=== PATIENT | female | born 1950 | race Caucasian/White ===

== ENCOUNTER → 2024-04-21 | Outpatient (CLI) | payer MEDICARE, BC, SELFPAY ==
[2024-04-21 11:40] LABS: Alanine Aminotransferase 18 U/L (10-49); Albumin, Serum 4.5 gm/dL (3.4-4.8); Albumin/Globulin Ratio 2.1 (1.2-2.2); Alkaline Phosphatase 42 U/L (46-116); Anion Gap 7 (7-16); Aspartate Amino Transferase 31 U/L (0-34); BUN/Creatinine Ratio 23 Ratio (12-20); Bilirubin,Total 0.5 mg/dL (0.3-1.2); Blood Urea Nitrogen 25 mg/dL (9-23); Calcium 9.9 mg/dL (8.3-10.6); Calcium (Corrected) 9.9 mg/dL (8.5-10.1); Cardiac Risk Estimate 2.8 RATIO (3.7-5.6); Chloride 107 mMol/L (98-107); Cholesterol 204 mg/dL (132-200); Creatinine (Component) 1.1 mg/dL (0.6-1.3); Globulin 2.1 gm/dL (2.3-3.5); Glucose 94 mg/dL (74-106); HDL Cholesterol 72 mg/dL (40-60); LDL Cholesterol,Calculated 120 mg/dL (0-130); Osmolality,Calculated 285 (275-295); Potassium 5.1 mMol/L (3.4-5.1); Sodium 141 mMol/L (136-145); Total Protein 6.6 gm/dL (5.7-8.2); Triglycerides 62 mg/dL (30-150); eGFR 53 See Note
== END | disposition home or self-care (01) ==
LOC: COPL 10:37
PROVIDERS: PCP Internal Medicine; Referring Provider Internal Medicine; Visit Provider Internal Medicine
DX: E78.5 Hyperlipidemia, unspecified (principal); I10 Essential (primary) hypertension
CPT/HCPCS: 36415; 80053; 80061

== ENCOUNTER → 2024-08-26 | Outpatient (CLI) | payer MEDICARE, BC, SELFPAY ==
[2024-08-26 11:59] LABS: Albumin, Serum 4.1 gm/dL (3.4-4.8); Anion Gap 5 (7-16); BUN/Creatinine Ratio 21 Ratio (12-20); Blood Urea Nitrogen 19 mg/dL (9-23); Calcium 9.3 mg/dL (8.3-10.6); Calcium (Corrected) 9.3 mg/dL (8.5-10.1); Chloride 108 mMol/L (98-107); Creatinine (Component) 0.9 mg/dL (0.6-1.3); Glucose 90 mg/dL (74-106); Osmolality,Calculated 283 (275-295); Phosphorous 3.7 mg/dL (2.4-5.1); Potassium 4.9 mMol/L (3.4-5.1); Sodium 141 mMol/L (136-145); eGFR > 60 See Note
== END | disposition home or self-care (01) ==
LOC: COPL 10:30
PROVIDERS: PCP Internal Medicine; Referring Provider Internal Medicine; Visit Provider Internal Medicine
DX: I10 Essential (primary) hypertension (principal); N17.9 Acute kidney failure, unspecified
CPT/HCPCS: 36415; 80069

== ENCOUNTER → 2024-09-04 | Outpatient (CLI) | payer MEDICARE, BC, SELFPAY ==
--- NOTE | 2024-09-04 14:30 | XR_ITS ---
Examination: Retroperitoneal ultrasound, complete Technique: Multiple high resolution grayscale images of the retroperitoneum obtained, including kidneys and bladder. Exam date and time:September 04, 2024 at 1435 hours INDICATIONS: Diagnosis acute renal insufficiency on laboratory examination today FINDINGS: Right kidney 10.2 cm in the cortex 1.8 cm Left kidney 10.9 cm cortex 2.0 cm Moderate bilateral renal parenchymal scar formation Lower pole left renal cyst 14 mm No bladder mass or bladder calculi, bladder prevoid volume 150 cc IMPRESSION: Moderate bilateral renal parenchymal scar formation No hydronephrosis
== END | disposition home or self-care (01) ==
LOC: CDIM 14:02
PROVIDERS: PCP Internal Medicine; Referring Provider Internal Medicine; Visit Provider Internal Medicine
DX: N28.89 Other specified disorders of kidney and ureter (principal)
CPT/HCPCS: 76770

== ENCOUNTER 2025-02-03 10:23 | Emergency (ER) | payer MEDICARE, BC, SELFPAY ==
[2025-02-03 10:34] VITALS: BP 147/77; PULSE 60; RESP 19; TEMP 36.9; O2SAT 97
--- NOTE | 2025-02-03 11:02 | XR_ITS ---
Examination: Abdomen AP single view Technique: AP portable supine abdomen, single view Exam date and time: February 03, 2025 1112 hours INDICATIONS: Mid abdominal pain beginning last night. FINDINGS: Large amounts of stool throughout the colon. No obstruction. No free air. Surgical clips upper right abdomen IMPRESSION: Large amounts of stool throughout the colon, no obstruction
--- NOTE | 2025-02-03 11:03 | EDRME_ITS ---
Rapid Medical Screening Exam [facility] Arrival date/time: 02/03/25 10:23 74-year-old female with a history of small bowel obstructions presents to the emergency room with a chief complaint of abdominal pain, dysuria, constipation x 3 days. Patient states she had a very small bowel movement on 02/01/2025 but states she is having a lot of pressure around the rectal area. I have greeted and performed a focused initial assessment of this patient. A comprehensive ED assessment and evaluation of the patient, analysis of all test results, and completion of the medical decision making process will be conducted by additional ED providers. Chief Complaint: Urogenital-Female Vital signs: Vital Signs Temperature 98.5 F 02/03/25 10:34 Pulse Rate 60 02/03/25 10:34 Respiratory Rate 19 02/03/25 10:34 Blood Pressure 147/77 H 02/03/25 10:34 Pulse Oximetry (%) 97 02/03/25 10:34 Oxygen Delivery Method Room Air 02/03/25 10:34 Vital signs reviewed by provider: Yes
[2025-02-03 11:27] LABS: Basophils # (Auto) 0.0 Thou/mm3 (0.0-0.2); Basophils % (Auto) 0 % (0-2.5); Eosinophils # (Auto) 0.0 Thou/mm3 (0.0-0.5); Eosinophils % (Auto) 0 % (0-10); Hematocrit 40.0 % (36.0-46.0); Hemoglobin 13.0 g/dL (12.0-16.0); Immature Granulocytes Auto 0.03 Thou/mm3 (0.00-0.00); Lymphocytes # (Auto) 1.1 Thou/mm3 (1.0-4.8); Lymphocytes % (Auto) 11 % (10-50); Mean Corpuscular HGB Conc 32.5 g/dl (31.0-37.0); Mean Corpuscular Hemoglobin 29.3 pg (25.0-35.0); Mean Corpuscular Volume 90 fL (80-100); Monocytes # (Auto) 0.4 Thou/mm3 (0.0-0.8); Monocytes % (Auto) 5 % (0-12); Neutrophils # (Auto) 8.0 Thou/mm3 (1.8-7.7); Neutrophils % (Auto) 84 % (37-80); Nucleated Red Blood Cell # 0.00 Thou/mm3 (0.00-0.00); Nucleated Red Blood Cell % 0 /100 WBC (0); Platelet Count 227 Thou/mm3 (140-440); RDW Standard Deviation 48.0 fL (36.4-46.3); Red Blood Count 4.44 Miln/mm3 (4.00-5.20); White Blood Count 9.6 Thou/mm3 (3.6-11.0)
[2025-02-03 11:44] LABS: Alanine Aminotransferase 17 U/L (10-49); Albumin, Serum 4.8 gm/dL (3.4-4.8); Albumin/Globulin Ratio 2.1 (1.2-2.2); Alkaline Phosphatase 69 U/L (46-116); Anion Gap 8 (7-16); Aspartate Amino Transferase 29 U/L (0-34); BUN/Creatinine Ratio 14 Ratio (12-20); Bilirubin,Total 0.4 mg/dL (0.3-1.2); Blood Urea Nitrogen 13 mg/dL (9-23); Calcium 10.5 mg/dL (8.3-10.6); Calcium (Corrected) 10.5 mg/dL (8.5-10.1); Carbon Dioxide 27.5 mMol/L (20.0-31.0); Chloride 108 mMol/L (98-107); Creatinine (Component) 0.9 mg/dL (0.6-1.3); Globulin 2.3 gm/dL (2.3-3.5); Glucose 121 mg/dL (74-106); Osmolality,Calculated 286 (275-295); Potassium 4.3 mMol/L (3.4-5.1); Sodium 143 mMol/L (136-145); Total Protein 7.1 gm/dL (5.7-8.2); eGFR > 60 See Note
[2025-02-03 11:48] VITALS: BMI 26.4
[2025-02-03] MEDS: MINERAL OIL 30 ML UDC TOP (12:49)
--- NOTE | 2025-02-03 12:51 | PC.NURSE ---
md kevin did manual dis impaction with mineral oil , large amount of stool removed
[2025-02-03 14:37] VITALS: BP 136/59; PULSE 60; RESP 17; TEMP 36.5; O2SAT 99
[2025-02-03 14:51] LABS: Collection Type, Urine Clean Catch; Squamous Epithelial Cell,Urine 0 /hpf (0-5)
[2025-02-03 14:55] LABS: Bilirubin,Urine Negative (Negative); Blood,Urine Negative (Negative); Clarity,Urine Clear (Clear/Hazy); Color,Urine Lt-Yellow (Lt Yel-Yel); Culture Indicated,Urine Not Indicated; Glucose, Urine Negative (Negative); Ketones,Urine Negative (Negative); Leukocyte Esterase,Urine Negative (Negative); Nitrite,Urine Negative (Negative); PH,Urine 7.0 (5.0-7.0); Protein,Urine Negative (Neg - Trace); RBC,Urine 6 /hpf (0-3); Specific Gravity,Urine 1.005 (1.001-1.035); Urobilinogen,Urine Negative mg/dL (0.0-1.0); WBC,Urine 2 /hpf (0-5)
[2025-02-03 15:56] VITALS: BP 144/68; PULSE 60; RESP 17; TEMP 36.7; O2SAT 97
--- NOTE | 2025-02-03 16:01 | EDNOTE_ITS ---
ED Female Urogenital RME/HPI General Chief complaint: Urogenital-Female Stated complaint: thinks she has a UTI and Impacted Time Seen by Provider: 02/03/25 11:24 Arrival date/time: 02/03/25 10:23 RME / HPI RME / HPI Narrative: 02/03/25 10:23 74-year-old female with a history of small bowel obstructions presents to the emergency room with a chief complaint of abdominal pain, dysuria, constipation x 3 days. Patient states she had a very small bowel movement on 02/01/2025 but states she is having a lot of pressure around the rectal area. I have greeted and performed a focused initial assessment of this patient. A comprehensive ED assessment and evaluation of the patient, analysis of all test results, and completion of the medical decision making process will be conducted by additional ED providers. DR. GARCIA MAIN ED EVALUATION 74 year old female with history of sick sinus syndrome s/p pacemaker, hypertension, diabetes, and previous small bowel obstruction presents to the ED for evaluation of abdominal pain, dysuria, and constipation beginning 3 days ago. Pain is described as aching in sensation that is located most across lower abdomen. Additionally reports she has had very small bowel movements since onset of pain that is accompanied by rectal pressure. Denies fevers, chills, chest pain, cough, shortness of breath, vomiting, or hematuria. Related Data Home Medications ?Medication ?Instructions ?Recorded ?Confirmed amlodipine 10 mg tablet (Norvasc) 10 mg PO QDAY #0 tab s 09/11/14 04/10/22 gabapentin 300 mg capsule See Rx Instructions .Route 0 08/05/15 04/10/22 .COMPLEX #0 caps baclofen 10 mg tablet 10 mg PO BID 10/20/19 denosumab 60 mg/mL subcutaneous See Rx Instructions .R oute .COMPLEX 04/10/22 04/10/22 syringe (Prolia) valsartan 160 mg tablet 160 mg PO QDAY 04/10/2203/22 Allergies Allergy/AdvReac Type Severity Reaction Status Date / Time lidocaine Allergy Severe DIFF Verified 02/03/25 10:30 BREATHING propoxyphene Allergy Severe DIFF Verified 02/03/25 10:30 BREATHING, DIZZINESS amoxicillin Allergy Mild FLU LIKE Verified 02/03/25 10:30 melatonin Allergy Mild BURNING Verified 02/03/25 10:30 MUSCLE PAIN mepivacaine Allergy Mild RESP ARREST Verified 02/03/25 10:30 metformin Allergy Mild GI UPSET, Verified 02/03/25 10:30 FATIGUE niacin Allergy Mild FLU Verified 02/03/25 10:30 pantoprazole Allergy Mild GI UPSET Verified 02/03/25 10:30 piroxicam Allergy Mild Rash Verified 02/03/25 10:30 hydrocodone Allergy Unknown Verified 02/03/25 10:30 promethazine Allergy Unknown GI UPSET Verified 02/03/25 10:30 Hwiowmn-WLW-StO Reductase Allergy Unknown MUSCLE PAIN Verified 02/03/25 10:30 Inhibitor (Cfxwkmi-Pie-Mpi Reductase Inhibitor) benazepril Allergy Cough Verified 02/03/25 10:30 celecoxib (From Celebrex) Allergy Blister Verified 02/03/25 10:30 ciclopirox Allergy Redness of Verified 02/03/25 10:30 Skin codeine Allergy Nausea Verified 02/03/25 10:30 epinephrine Allergy Difficulty Verified 02/03/25 10:30 Breathing ezetimibe Allergy Cramping Verified 02/03/25 10:30 of the Muscles iron Allergy Swelling Verified 02/03/25 10:30 of Lip/Tongue/Throat lubiprostone (From Amitiza) Allergy Dizziness Verified 02/03/25 10:30 penicillin V AdvReac Severe FEVER, Verified 02/03/25 10:30 JOINTS ACHE, KNOTS UNDER EYES erythromycin base AdvReac Unknown Nausea Verified 02/03/25 10:30 DIORDAN Allergy Mild Hives Uncoded 02/03/25 10:30 GAS ANESTHESIA Allergy Nausea Uncoded 02/03/25 10:30 NUCLEAR SCAN Allergy Difficulty Uncoded 02/03/25 10:30 Breathing Review of Systems Review of Systems Systems Reviewed: All systems reviewed, normal except as documented Past Medical History Past Medical History NEUROLOGIC: Positive Head Trauma CARDIAC: Positive Cardiac Disorders, Cardiac Arrhythmia, Heart Murmur and Hypertension RESPIRATORY: Positive Bronchitis and Pneumonia GASTROINTESTINAL: Positive Gastrointestinal Disorders, Pancreatitis, Gall Bladder Disease (LAP), Obstructive Bowel and Gastroesophageal Reflux Disease (TAKES MED) GENITOURINARY: Positive Genitourinary Disorders and Renal Disease MUSCULOSKELETAL: Positive Musculoskeletal Disorders, Arthritis, Osteoporosis and Carpal Tunnel Syndrome ENT: Positive Cataracts and Head Trauma ENDOCRINE: Positive Endocrine Disorders and Diabetes Mellitus Type 2 OTHER HISTORY: Positive Hospitalization, Anesthesia Reactions, Chicken Pox, Measles and Mumps Family History FAMILY HISTORY: Positive Family Cardiac Disorders, Family Cancer and Family Anesthesia Reaction Surgical History SURGICAL: Positive Pacemaker, Tonsillectomy, Abdominal Surgery and Hysterectomy Social History SMOKING STATUS: Never smoker SUBSTANCE USE: does not use ED Exam Narrative Physical exam: GENERAL APPEARANCE: alert and oriented x 4, well-developed, well-nourished, no acute distress HEENT: Normocephalic, atraumatic; pupils equal, round, reactive to light; EOMI; mucous membranes pink, moist; oropharynx clear NECK: Supple LUNGS: CTABL; no wheezes, no rales, no rhonchi HEART: Regular rate, regular rhythm; normal S1, S2; no murmurs ABDOMEN: abdominal fullness with diffuse tenderness to palpation; non distended; normal BS; no guarding, no rebound; no masses, no organomegaly, no hernia BACK: no CVA tenderness EXTREMITIES: atraumatic; no edema NEUROLOGIC: awake; alert and oriented x4; cranial nerves II-XII grossly intact; no focal sensory or motor deficits PSYCHIATRIC: appropriate mood and affect SKIN: warm, dry, normal color; no rashes Course Course Course Narrative: Manual disimpaction performed. I obtained verbal consent from the patient. Patient positioned in left lateral decubitus position. Digital rectal examination performed, revealing soft stool in the rectal vault. Using gloved, lubricated finger, stool was manually removed in multiple pieces. Stool soft and reddish brown. Mineral oil was used adjunctively. Patient tolerated procedure well though with mild discomfort. Patient was given a soap suds enema following disimpaction and passed large amount of stool. Quality Measures none Orders Category Date Time Status Enema Administration NOW Care 02/03/25 12:35 Completed Insert IV NOW Care 02/03/25 11:48 Completed XR abdomen 1V Stat Exams 02/03/25 11:02 Completed CBC Stat Lab 02/03/25 11:13 Completed CMP [Comprehensive Metabolic Panel] Stat Lab 02/03/25 11:13 Completed UA, C/S IF [Urinalysis, C/S if Indicated] Stat Lab 02/03/25 14:40 Completed Mineral Oil Med 02/03/25 12:15 Discontinued 2 ml TOP X1 ONE Mineral Oil Top Oralia [Muri-Lube Oil Top Oralia] Med 02/03/25 12:01 Discontinued 2 ml TOP X1 ONE Vital Signs Vital signs: Vital Signs Temperature 98.5 F 02/03/25 10:34 Pulse Rate 60 02/03/25 10:34 Respiratory Rate 19 02/03/25 10:34 Blood Pressure 147/77 H 02/03/25 10:34 Pulse Oximetry (%) 97 02/03/25 10:34 Oxygen Delivery Method Room Air 02/03/25 10:34 Pulse ox is 97% on room air which is adequate. Urogenital - Female MDM Narrative MDM Narrative:: Rosa Isela Cheney am scribing for and in the presence of Dr. Garcia. Patient data External records reviewed:: [facility] previous records Clinical information provided by:: patient Social determinants that could affect healthcare access:: none Patient has the following chronic illnesses:: sick sinus syndrome s/p pacemaker, hypertension, diabetes, and previous small bowel obstruction How is presenting disease/condition affected by chronic disease/condition?: exacerbated by Evaluation data The following diagnostics were reviewed and interpreted by me:: lab results and radiology exam(s) Lab and/or radiology exams considered but not ordered:: None Interpretation Summary: Ordering Physician: Rhett Gamble Date of Service: 02/03/25 Procedure(s): XR abdomen 1V Accession Number(s): [id number] cc: Rhett Gamble; Kevin Ernandez MD; Brian Larios MD~ Examination: Abdomen AP single view Technique: AP portable supine abdomen, single view Exam date and time: February 03, 2025 1112 hours INDICATIONS: Mid abdominal pain beginning last night. FINDINGS: Large amounts of stool throughout the colon. No obstruction. No free air. Surgical clips upper right abdomen IMPRESSION: Large amounts of stool throughout the colon, no obstruction Dictated By: Kevin Ernandez MD Signed By: <Electronically signed by Kevin Ernandez MD in [place]> 02/03/25 1140 Medications / Prescriptions Medications or Prescriptions considered but not ordered:: None Medication administrations:: Medication Administration History Discontinued Medications Mineral Oil (Mineral Oil Top Oralia 2 Ml Vial) 2 ml TOP X1 ONE Stop: 02/03/25 12:02 Last Admin: 02/03/25 12:49 Dose: Not Given Documented By: DAA Non-Admin Reason: Cancelled by Provider Mineral Oil (Mineral Oil 30 Ml Udc) 2 ml TOP X1 ONE Stop: 02/03/25 12:16 Last Admin: 02/03/25 12:49 Dose: 2 ml Documented By: SRINIVASAN Comments: given to md to give. See above Consultations Consultation(s) initiated? (list below): No Diagnosis Urogenital Female Differential Diagnosis: urinary tract infection and other (small bowel obstruction, constipation ) Most likely diagnosis given after review of the tests above:: Constipation Admission Indicated Admission indicated?: not indicated Admission Request Was there a request for admission?: No Disposition Plan Disposition Plan: Discharge Discharge Attestation Discharge Attestation: The patient and all family members were given an opportunity to ask questions and understood the discharge instructions. Discharge instructions specifically effects, indications for sooner follow up or return to the emergency department, and the expected course of current diagnosis. Patient condition: Stable Discharge Plan Plan Patient Disposition: HOME (Self Care) Prescriptions/Referrals Prescriptions/Med Rec: No Action amlodipine [Norvasc] 10 MG tablet 10 mg PO QDAY Qty: 0 gabapentin 300 MG capsule See Rx Instructions .ROUTE .COMPLEX Qty: 0 Rx Instructions: TAKE ONE CAPSULE BY MOUTH THREE TIMES DAILY AND 2 CAPSULES EVERY NIGHT AT BEDTIME baclofen 10 mg Tablet 10 mg PO BID valsartan 160 mg tablet 160 mg PO QDAY Patient Comments: TAKE 1 TABLET BY MOUTH EVERY DAY Prolia 60 mg/mL syringe See Rx Instructions .ROUTE .COMPLEX Patient Comments: INJECT CONTENTS OF 1 SYRINGE UNDER THE SKIN ONCE EVERY 6 MONTHS Rx Instructions: INJECT CONTENTS OF 1 SYRINGE UNDER THE SKIN ONCE EVERY 6 MONTHS Referrals: Brian Larios MD [Primary Care Provider, Nephrology] - In 1 week Problem List Clinical Impression: Constipation Patient/Caregiver Discharge Instructions Education Materials: Treating Constipation, ED Constipation (Adult) Print Language: Citizen [place] Stand Alone Forms: Geraldine Award Info., Patient Portal Info Letter
[2025-02-03 16:59] VITALS: BP 142/63; PULSE 68; RESP 18; O2SAT 98
== END 2025-02-03 17:00 | disposition home or self-care (01) ==
PROVIDERS: Nurse Practitioner Family; Emergency Provider Emergency Medicine; PCP Internal Medicine
DX: K59.00 Constipation, unspecified (principal)
CPT/HCPCS: 36415; 74018; 80053; 81001; 85025; 99284; A9270

== ENCOUNTER → 2025-04-28 | Outpatient (CLI) | payer MEDICARE, BC, SELFPAY ==
[2025-04-28 11:11] LABS: Collection Type, Urine Clean Catch
[2025-04-28 11:46] LABS: Basophils # (Auto) 0.0 Thou/mm3 (0.0-0.2); Basophils % (Auto) 1 % (0-2.5); Eosinophils # (Auto) 0.2 Thou/mm3 (0.0-0.5); Eosinophils % (Auto) 3 % (0-10); Hematocrit 38.7 % (36.0-46.0); Hemoglobin 12.5 g/dL (12.0-16.0); Immature Granulocytes Auto 0.01 Thou/mm3 (0.00-0.00); Lymphocytes # (Auto) 2.0 Thou/mm3 (1.0-4.8); Lymphocytes % (Auto) 36 % (10-50); Mean Corpuscular HGB Conc 32.3 g/dl (31.0-37.0); Mean Corpuscular Hemoglobin 30.0 pg (25.0-35.0); Mean Corpuscular Volume 93 fL (80-100); Monocytes # (Auto) 0.4 Thou/mm3 (0.0-0.8); Monocytes % (Auto) 8 % (0-12); Neutrophils # (Auto) 3.0 Thou/mm3 (1.8-7.7); Neutrophils % (Auto) 53 % (37-80); Nucleated Red Blood Cell # 0.00 Thou/mm3 (0.00-0.00); Nucleated Red Blood Cell % 0 /100 WBC (0); Platelet Count 250 Thou/mm3 (140-440); RDW Standard Deviation 45.9 fL (36.4-46.3); Red Blood Count 4.17 Miln/mm3 (4.00-5.20); White Blood Count 5.6 Thou/mm3 (3.6-11.0)
[2025-04-28 11:56] LABS: Bilirubin,Urine Negative (Negative); Blood,Urine Negative (Negative); Clarity,Urine Clear (Clear/Hazy); Color,Urine Yellow (Lt Yel-Yel); Glucose, Urine Negative (Negative); Ketones,Urine Negative (Negative); Leukocyte Esterase,Urine Negative (Negative); Nitrite,Urine Negative (Negative); PH,Urine 6.5 (5.0-7.0); Protein,Urine Negative (Neg - Trace); RBC,Urine 2 /hpf (0-3); Specific Gravity,Urine 1.016 (1.001-1.035); Squamous Epithelial Cell,Urine < 1 /hpf (0-5); Urobilinogen,Urine Negative mg/dL (0.0-1.0); WBC,Urine 1 /hpf (0-5)
[2025-04-28 12:05] LABS: Alanine Aminotransferase 12 U/L (10-49); Albumin, Serum 4.3 gm/dL (3.4-4.8); Albumin/Globulin Ratio 1.5 (1.2-2.2); Alkaline Phosphatase 64 U/L (46-116); Anion Gap 7 (7-16); Aspartate Amino Transferase 25 U/L (0-34); BUN/Creatinine Ratio 17 Ratio (12-20); Bilirubin,Total 0.4 mg/dL (0.3-1.2); Blood Urea Nitrogen 17 mg/dL (9-23); Calcium 10.1 mg/dL (8.3-10.6); Calcium (Corrected) 10.1 mg/dL (8.5-10.1); Carbon Dioxide 31.0 mMol/L (20.0-31.0); Cardiac Risk Estimate 2.7 RATIO (3.7-5.6); Chloride 107 mMol/L (98-107); Cholesterol 217 mg/dL (132-200); Creatinine (Component) 1.0 mg/dL (0.6-1.3); Globulin 2.9 gm/dL (2.3-3.5); Glucose 98 mg/dL (74-106); HDL Cholesterol 81 mg/dL (40-60); LDL Cholesterol,Calculated 117 mg/dL (0-130); Osmolality,Calculated 290 (275-295); Potassium 4.4 mMol/L (3.4-5.1); Sodium 145 mMol/L (136-145); Total Protein 7.2 gm/dL (5.7-8.2); Triglycerides 93 mg/dL (30-150); eGFR 59 See Note
== END | disposition home or self-care (01) ==
LOC: COPL 10:39
PROVIDERS: PCP Internal Medicine; Referring Provider Internal Medicine; Visit Provider Internal Medicine
DX: E78.5 Hyperlipidemia, unspecified (principal); I10 Essential (primary) hypertension
CPT/HCPCS: 36415; 80053; 80061; 81001; 85025